=== PATIENT | female | born 1990 | race Two or more races ===

== ENCOUNTER 2020-05-22 19:10 | Emergency (ER) | payer MEDICAID ==
--- NOTE | 2020-05-22 20:07 | ER Document Report ---
ED Medical Screen (RME) - General Chief Complaint: Psych Problem Stated Complaint: PSYCH/NEEDS MEDS ADJUSTED Time Seen by Provider: 05/22/20 19:57 - HPI Notes: 05/22/20 20:05 30-year-old female with history of jackelin bipolar disorder presents to ED on recommendations for mobile crisis for evaluation of increased fluctuations of bipolar disorder. Patient reports has been manic for last week and started with episode of bipolar yesterday. Patient been crying and left a suicide note that she states was not to be taken in context. She reports she is not suicidal and has been in the past. Per mobile crisis and patient she has overdosed and used multiple medications in the past. She is from [place] and has been in [place] for 1 month. She has a history of cutting and has had multiple hospitalizations in [place]. Patient reports that she is out of one of the 4 medication she takes. She is also on oxcarbazepine and has not had a level checked in quite some time. She reports that she has been using cannabis and alcohol as well as cocaine and opiates in the past. Reports that she has not used alcohol in over 2 days and has not been using cocaine or opiates recently. Denies recent cannabis use. Patient reports that she does not have any cough or cold symptoms. She denies any current thoughts of harming herself or others. Reports that she believes that this is due to her cycling and the fact that her medications may not be appropriate. Reports that she was sent here for management as she has no one else to manage her care. - Related Data Allergies/Adverse Reactions: hydromorphone [From Dilaudid] Allergy (Verified 05/22/20 19:58) morphine Allergy (Verified 05/22/20 19:58) Penicillins Allergy (Verified 05/22/20 19:58) amoxicillan Allergy (Uncoded 05/22/20 19:58) Physical Exam - Vital signs Vitals: Temp Pulse Resp BP Pulse Ox 98.4 F 102 H 16 120/79 97 05/22/20 19:46 05/22/20 19:46 05/22/20 19:46 05/22/20 19:46 05/22/20 19:46 General: No acute distress. Alert and oriented x3. Sitting comfortably in a stretcher. Skin: No jaundice, pallor, petechiae, or rashes. Warm and dry. HEENT: Normocephalic, atraumatic. Pupils are equal round reactive to light and accommodation. Extraocular movements are intact. TMs without erythema or bulging. Canals are clear. Nares patent without any discharge. Teeth in good condition. Pharynx without erythema, edema, or exudates. Mucous membranes moist. No tonsillar enlargement. Uvula is midline. Airway is patent. Neck: Supple with no lymphadenopathy. Full range of motion. Heart: Regular rate and rhythm. S1,S2. No murmurs, rubs, or gallops. Lungs: Clear to auscultation bilaterally. No wheezes, rhonchi, rales. Equal chest expansion. No retractions. Abdomen: Soft, nontender to palpation, nondistended. Positive bowel sounds in all 4 quadrants. No masses. No CVA tenderness bilaterally. Back: No midline spinal TTP. No paraspinous muscular TTP. Neuro: GCS 15. Moving all extremities without discomfort. Psych: Mood and affect flat Course - Vital Signs Vital signs: Temp Pulse Resp BP Pulse Ox 98.4 F 102 H 16 120/79 97 05/22/20 19:46 05/22/20 19:46 05/22/20 19:46 05/22/20 19:46 05/22/20 19:46
[2020-05-22 20:57] LABS: ABSOLUTE EOSINOPHILS # (AUTO) 0.1 10^3/uL (0.0-0.6); ABSOLUTE LYMPHOCYTES (AUTO) 2.1 10^3/uL (0.5-4.7); ABSOLUTE MONOCYTES (AUTO) 0.6 10^3/uL (0.1-1.4); ABSOLUTE NEUT (AUTO) 8.5 10^3/uL (1.7-8.2); BASOPHILS % (AUTO) 0.3 % (0-2); EOSINOPHILS % (AUTO) 0.5 % (0-6); HEMATOCRIT 40.7 % (36.0-47.0); HEMOGLOBIN 13.7 g/dL (12.0-15.5); LYMPHOCYTES % (AUTO) 18.2 % (13-45); MEAN CORPUSCULAR HEMOGLOBIN 26.7 pg (27.0-33.4); MEAN CORPUSCULAR HGB CONC 33.7 g/dL (32.0-36.0); MEAN CORPUSCULAR VOLUME 79 fl (80-97); MONOCYTES % (AUTO) 5.7 % (3-13); PLATELET COUNT 338 10^3/uL (150-450); RED BLOOD COUNT 5.13 10^6/uL (3.72-5.28); RED CELL DISTRIBUTION WIDTH 13.6 % (11.5-14.0); SEGMENTED NEUTROPHILS % (AUTO) 75.3 % (42-78); TOTAL CELLS COUNTED % (AUTO) 100 %; WHITE BLOOD COUNT 11.3 10^3/uL (4.0-10.5)
[2020-05-22 20:58] LABS: APPEARANCE,URINE CLOUDY; BILIRUBIN,URINE NEGATIVE (NEGATIVE); COLOR,URINE YELLOW; GLUCOSE, URINE NEGATIVE (NEGATIVE); KETONES,URINE NEGATIVE (NEGATIVE); LEUKOCYTE ESTERASE,URINE LARGE (NEGATIVE); NITRITE,URINE NEGATIVE (NEGATIVE); PROTEIN,URINE NEGATIVE (NEGATIVE); URINE SPECIFIC GRAVITY 1.013; UROBILINOGEN,URINE NEGATIVE mg/dL (<2.0)
[2020-05-22 21:10] LABS: URINE AMPHETAMINES SCREEN NEGATIVE; URINE BARBITURATES SCREEN NEGATIVE; URINE BENZODIAZEPINES SCREEN NEGATIVE; URINE COCAINE SCREEN NEGATIVE; URINE MARIJUANA (THC) SCREEN NEGATIVE; URINE METHADONE SCREEN NEGATIVE; URINE PHENCYCLIDINE SCREEN NEGATIVE
[2020-05-22 21:13] LABS: ALBUMIN 4.6 g/dL (3.5-5.0); ALKALINE PHOSPHATASE 97 U/L (38-126); ANION GAP 9 (5-19); ASPARTATE AMINO TRANSFERASE 19 U/L (14-36); BILIRUBIN,DIRECT 0.1 mg/dL (0.0-0.4); BILIRUBIN,TOTAL 0.2 mg/dL (0.2-1.3); BLOOD UREA NITROGEN 17 mg/dL (7-20); CALCIUM 9.5 mg/dL (8.4-10.2); CARBON DIOXIDE 24 mmol/L (22-30); CHLORIDE 106 mmol/L (98-107); GLUCOSE 90 mg/dL (75-110); POTASSIUM 3.9 mmol/L (3.6-5.0); TOTAL PROTEIN 7.8 g/dL (6.3-8.2)
[2020-05-22 21:16] LABS: ACETAMINOPHEN < 10 ug/mL (10-30); ALCOHOL < 10 mg/dL (NONE DETECTED); SALICYLATE < 1.0 mg/dL (2.0-20.0)
[2020-05-22] MEDS ORDERED: MELATONIN 5 MG TABLET PO ONE (23:56)
--- NOTE | 2020-05-23 00:19 | ER Document Report ---
ED General - Related Data Home Medications: Oxcarbazepine 300mg. Hydroxyzine HCL 50mg. Mirtazapine 30mg. Aripiprazole 10mg <SHAUN BRADY IV - Last Filed: 05/23/20 05:45> <MARILIA JUAREZ - Last Filed: 05/23/20 16:37> <LOUISE MACDONALD - Last Filed: 05/23/20 18:03> - General Chief Complaint: Psych Problem Stated Complaint: PSYCH/NEEDS MEDS ADJUSTED Time Seen by Provider: 05/22/20 19:57 Primary Care Provider: [facility] [Outside] - Follow up in 3-5 days [facility] [Outside] - Follow up as needed - [facility] Context: Time:[00 01 hours] Chief Complaint: [Out of bipolar medications] [This is a 30-year-old female with a history of bipolar disorder who presents to the emergency department based on recommendation from mobile crisis for evaluation of increased fluctuation of her mood. Patient states she has felt like she has been in more of a manic state than usual and has been out of some of her bipolar medications. Patient denies suicidal ideation or homicidal ideation. Patient states that she does use cannabis and alcohol as well as cocaine and opiates. Patient states the last time she used alcohol was 2 days ago. ] History obtained from [patient] Symptoms began:[1 week ago] Onset: [Gradual] Timing: [Gradual] Quality: [Insomnia and elevated mood] Intensity: [Severe] Location: [Generalized] Radiation: [Denies] [The pain does not migrate to a new location.] Aggravating factors: [none] Relieving factors: [none] [Denies] SOB [Denies] nausea [Denies] vomiting [Denies] sweats [Denies] fever [Denies] cough [Denies] calf or leg swelling or pain (SHAUN BRADY IV) - Related Data Allergies/Adverse Reactions: hydromorphone [From Dilaudid] Allergy (Verified 05/22/20 19:58) morphine Allergy (Verified 05/22/20 19:58) Penicillins Allergy (Verified 05/22/20 19:58) amoxicillan Allergy (Uncoded 05/22/20 19:58) Past Medical History - General Information source: Patient - Social History Smoking Status: Current Every Day Smoker Chew tobacco use (# tins/day): No Frequency of alcohol use: Occasional Drug Abuse: None Family History: Reviewed & Not Pertinent <SHAUN BRADY IV - Last Filed: 05/23/20 05:45> Review of Systems <SHAUN BRADY IV - Last Filed: 05/23/20 05:45> - Review of Systems Notes: Review of systems as below unless otherwise stated in HPI. CONSTITUTIONAL [No] fever, [No] chills. EYES [No] eye pain. ENT [No] URI symptoms, [No] sore throat, [No] ear pain. CARDIOVASCULAR [No] chest pain, [No] palpitations, [No] edema. RESPIRATORY [No] Cough, [No] SOB, [No] wheezing. GASTROINTESTINAL [No] abdominal pain, [No] nausea, [No] Diarrhea, [No] Vomiting, [No] constipation, [No] melena, [No] rectal bleeding. GENITOURINARY [No] dysuria, [No] urinary frequency, [No] hematuria, [No] urinary urgency, [No] vaginal discharge, [No] vaginal bleeding. MUSCULOSKELETAL [No] Back pain. SKIN [No] Rash. NEUROLOGIC [No] Headache, [No] recent seizures, [No] paralysis,[No] parathesias. ENDOCRINE [No] polyuria. HEMO/LYMPATIC [No] easy brusing PSYCHIATRIC Positive jackelin, positive anxiety, positive lability of mood, positive insomnia, negative suicidal ideation, negative homicidal ideation (SHAUN BRADY IV) Physical Exam <SHAUN BRADY IV - Last Filed: 05/23/20 05:45> - Vital signs Vitals: Temp Pulse Resp BP Pulse Ox 98.4 F 102 H 16 120/79 97 05/22/20 19:46 05/22/20 19:46 05/22/20 19:46 05/22/20 19:46 05/22/20 19:46 - Notes Notes: CONSTITUTIONAL [Vital signs reviewed, Patient appears tearful, alert and oriented X 3, Normal stature.] HEAD [Atraumatic, Normocephalic.] EYES [Eyes are normal to inspection, No discharge from eyes, Extraocular muscles intact, Sclera are normal, Conjunctiva are normal.] ENT [External ears normal to inspection, Nose examination normal, Mouth normal to inspection.] NECK [Normal ROM, No jugular venous distention, No meningeal signs, ] RESPIRATORY CHEST [Chest is nontender, Breath sounds normal, No respiratory distress.] CARDIOVASCULAR [RRR, No murmurs, Normal S1 S2, No rub, No gallop.] ABDOMEN [Abdomen is nontender, No pulsatile masses, No other masses, Bowel sounds normal, No distension, No peritoneal signs, No hernias.] BACK [There is no CVA Tenderness, There is no tenderness to palpation, Normal inspection.] UPPER EXTREMITY [Inspection normal, No cyanosis, No clubbing, No edema, LOWER EXTREMITY [Inspection normal, No cyanosis, No clubbing, No edema, No calf tenderness, NEURO [No focal motor deficits, No focal sensory deficits, Speech normal.] SKIN [Skin is warm, Skin is dry, Skin is normal color.] LYMPHATIC [No adenopathy in neck.] PSYCHIATRIC [Patient is tearful. Speech is rational, not rapid. Patient makes good eye contact. Patient denies suicidal ideation or homicidal ideation.. ] (SHAUN BRADY IV) Course - Laboratory Results Result Diagrams: 05/22/20 20:25 05/22/20 20:25 Critical Laboratory Results Reviewed: Yes Attending or Supervising Physician who Reviewed Labs: SHAUN BRADY IV - Abnormal urinalysis - Radiology Results Critical Radiology Results Reviewed: No Critical Results Attending or Supervising Physician who Reviewed Radiology: SHAUN BRADY IV <SHAUN BRADY IV - Last Filed: 05/23/20 05:45> - Laboratory Results Result Diagrams: 05/22/20 20:25 05/22/20 20:25 <MARILIA JUAREZ - Last Filed: 05/23/20 16:37> - Laboratory Results Result Diagrams: 05/22/20 20:25 05/22/20 20:25 <LOUISE MACDONALD - Last Filed: 05/23/20 18:03> - Vital Signs Vital signs: Temp Pulse Resp BP Pulse Ox 98.1 F 91 16 102/68 99 05/23/20 08:53 05/23/20 08:53 05/23/20 08:53 05/23/20 08:53 05/23/20 08:53 - Laboratory Results Laboratory Results Interpreted: 12/05/3005/22/20 05/22/20 20:25 20:25 20:30 WBC 11.3 H MCV 79 L MCH 26.7 L Absolute Neuts (auto) 8.5 H Urine Blood MODERATE H Ur Leukocyte Esterase LARGE H Salicylates < 1.0 L Acetaminophen < 10 L - EKG Interpretation by Me Additional EKG results interpreted by me: 05/23/20 00:27 EKG obtained on 05/22/2020 at 2033 hrs. was interpreted by this MD. Findings: Normal sinus rhythm, heart rate 92, normal axis, SC interval appears to be within normal limits, P waves preceding QRS complexes, QRS complexes appear narrow, QTC is 476, there are no obvious patterns of ST segment elevation, depression or reciprocal changes seen to suggest acute myocardial ischemia or infarction. There is no prior EKG available for comparison. Impression: Normal sinus rhythm with nonspecific ST segments. (SHAUN BRADY IV) Discharge <SHAUN BRADY IV - Last Filed: 05/23/20 05:45> <MARILIA JUAREZ - Last Filed: 05/23/20 16:37> <LOUISE MACDONALD - Last Filed: 05/23/20 18:03> - Discharge Clinical Impression: Yeast UTI Bipolar disorder Qualifiers: Active/Remission status: remission status unspecified Qualified Code(s): F31.9 - Bipolar disorder, unspecified UTI (urinary tract infection) Qualifiers: Urinary tract infection type: site unspecified Hematuria presence: with hematuria Qualified Code(s): N39.0 - Urinary tract infection, site not specified Condition: Stable Disposition: HOME, SELF-CARE Instructions: Urinary Tract Infection ([facility]) Additional Instructions: Your urine shows findings consistent with a urinary tract infection. Please take all the antibiotics as directed even if your symptoms have improved. Please follow-up with your primary care physician as needed. Return to emergency room if you develop fever >101F, persistent vomiting, become lethargic, have severe pain in your sides, or any other symptoms that are concerning to you. You have been evaluated both medical and behavioral teams have been deemed appropriate for discharge. You have been provided prescriptions for your home medications that you have run out on as the following: Abilify 10 mg daily Trileptal 300 MG twice daily Remeron 30 mg daily You have been vital local resource list of area providers including mobile crisis contact information. Please make an appointment with your chosen provider in the next 3 to 5 days for follow-up outpatient mental health services. AT ANY TIME, IF YOUR SYMPTOMS CHANGE SIGNIFICANTLY OR WORSEN OR YOU DEVELOP NEW SYMPTOMS, RETURN TO THE EMERGENCY DEPARTMENT IMMEDIATELY FOR RE-EVALUATION. Prescriptions: Aripiprazole 10 mg PO DAILY #14 tablet Sulfamethoxazole/Trimethoprim [Bactrim Ds Tablet] 1 each PO BID #14 tablet Fluconazole [Diflucan 100 mg Tablet] 100 mg PO ASDIR PRN #1 tablet PRN Reason: Mirtazapine 30 mg PO DAILY #14 tablet Oxcarbazepine 300 mg PO BID #28 tablet Referrals: [facility] [Outside] - Follow up as needed [facility] [Outside] - Follow up in 3-5 days
[2020-05-23] MEDS ORDERED: FLUCONAZOLE 100 MG TABLET PO ONE (09:44)
[2020-05-23] MEDS ORDERED: SULFAMETHOXAZOLE/TRIMETHOPRIM 800-160 MG TABLET PO ONE (09:44)
--- NOTE | 2020-05-23 09:45 | ER Document Report ---
Doctor's Note Notes: 05/23/20 09:45 PHYSICAL EXAMINATION: GENERAL: Appears well, healthy, well-nourished, no acute distress. LUNGS: Equal breath sounds bilaterally and clear to auscultation. No wheezes rales or rhonchi. CARDIOVASCULAR: S1-S2, regular rate, regular rhythm. Radial pulses 2+, normal. ABDOMEN: Normoactive bowel sounds. Soft, nontender, no guarding, no rebound tenderness, and no masses palpated. PSYCH: Normal mood, normal affect. Patient denies any suicidal or homicidal ideation at this time. Denies any auditory or visual hallucinations. Patient has a large amount of leukocytes and moderate amount of blood in her urine. She also has yeast budding. Ordered her some Diflucan and Bactrim. We will also send her urine for culture. 05/23/20 18:00 Pharmacy has reconciled medications and patient is currently on Abilify 10 mg daily, Trileptal 100 mg twice daily, and Remeron 30 mg daily. We will refill these medications for 2 weeks. Patient has follow-up with mental health. We will also put the patient on Bactrim and fluconazole for treatment of her urinary tract infection with a yeast urinary tract infection. Patient is in agreement with this plan. Follow-up precautions were given. Verbal discharge instructions were given to the patient. They verbalized understanding. They are stable for discharge.
--- NOTE | 2020-05-23 13:44 | PSYCHOLOGICAL NOTE ---
Psych Note - Psych Note Date seen by psych provider: 05/23/20 Time seen by psych provider: 10:50 Psych Note: Reason for Consult: Out of psychiatric medications Patient presented to [facility] ED via POV for concerns of being out of her psychiatric medications. Patient was initially very tearful upon arrival and reports concerns that her medications were not working and has run out of one of them. Patient discloses today that her medication was working and thought they had stopped but thinks that it is possible her urinary tract infection and yeast infection could have triggered her recent bout of jackelin. She discloses that she just arrived to [place] from [place] a month ago and has not been able to secure outpatient mental health services. She reports that she is out of her medication that she "thinks starts with an A." She continue to report that she still has one of her other ones because she was only taking it twice a day instead of 3 times a day as directed; she cannot remember the exact name. Patient discloses that she was upset last night and crying because she did not want to have to go inpatient. She reports she has been inpatient psychiatric treatment before with the last time being approximately 8 months ago. She states, "in [place] if I went into a hospital because of running out of meds I would end up stuck there for at least 3 days.... I do not want to hurt anybody or myself I just feel ... I ran out of my medication...I can't put into words what it feels like..." Patient is alert and orientated to person, place, time and circumstance. Mood is currently anxious with congruent affect as noted by psycho motor agitation (she is noted to be rocking back and forth) that she reports is keeping her calm and comforts her. Patient denies suicidal and homicidal ideation. Delusions are absent and behaviors congruent with an intact reality based presentation i.e. organized and linear thought process. Eye contact was well maintained. Conversational speech is within normal rate, tone and prosody. Intellectual abilities appear to be within the average range. Attention and concentration is fair. Insight, judgment, impulse control is fair. Medication recommendations are recommended; however, at this time the patient's home medication have not been reconciled Impression\\plan: Patient is will be cleared from acute psychiatric services once medications are able to be provided to assist with her current withdrawal symptoms. At this time patient's medications have not been reconciled. Patient does not meet IVC criteria per [place] GS 120 2C as she denies any thoughts of wanting to harm herself or others. Patient is not demonstrating behaviors of responding to internal stimuli. There is notable psychomotor agitation and connection to the patient attempting to self soothe. Dr. Silva was consulted to care management of this patient; attending physicians in agreement with recommendations and disposition.
[2020-05-23] MEDS ORDERED: ARIPIPRAZOLE 5 MG TABLET PO ONE (16:31)
[2020-05-23] MEDS ORDERED: MIRTAZAPINE 15 MG TABLET PO ONE (16:32)
[2020-05-23] MEDS ORDERED: OXCARBAZEPINE 150 MG TABLET PO ONE (16:32)
[2020-05-23 18:22] VITALS: BP 116/67
--- NOTE | 2020-05-24 00:23 | EKG REPORT ---
SEVERITY:- NORMAL ECG - SINUS RHYTHM : Confirmed by: Bernadette Meade 24-May-2020 00:22:22
== END 2020-05-23 18:22 | disposition home or self-care (01) ==
LOC: ER 19:10
DX: B37.49 Other urogenital candidiasis (principal); F31.9 Bipolar disorder, unspecified; F12.10 Cannabis abuse, uncomplicated; F10.10 Alcohol abuse, uncomplicated; F14.10 Cocaine abuse, uncomplicated; F19.10 Other psychoactive substance abuse, uncomplicated; Z88.8 Allergy status to other drugs, medicaments and biological substances; Z88.0 Allergy status to penicillin; F17.200 Nicotine dependence, unspecified, uncomplicated
CPT/HCPCS: 93005; 99285; 80183; 36415; 87086; 80307 ×4; 84703; 85025; 80053; 81001; 93010; J3490 ×5

== ENCOUNTER 2020-06-09 18:48 | Emergency (ER) | payer MEDICAID ==
[2020-06-09] MEDS ORDERED: NORMAL SALINE 1000 ML 1,000 ML IV ONE (19:39)
--- NOTE | 2020-06-09 19:40 | ER Document Report ---
ED Medical Screen (RME) - General Chief Complaint: Chest Congestion Stated Complaint: COUGH,CONGESTION,DIARRHEA Time Seen by Provider: 06/09/20 19:35 Notes: Patient presents complaining of cough congestion with chest pain for the past 4 days. Patient reports sore throat and diarrhea. Patient denies any fever. Patient reports recent long distance travel from [place] this past week. I have greeted and performed a rapid initial assessment of this patient. A comprehensive ED assessment and evaluation of the patient, analysis of test results and completion of the medical decision making process will be conducted by additional ED providers. - Related Data Allergies/Adverse Reactions: hydromorphone [From Dilaudid] Allergy (Verified 05/22/20 19:58) morphine Allergy (Verified 05/22/20 19:58) Penicillins Allergy (Verified 05/22/20 19:58) amoxicillan Allergy (Uncoded 05/22/20 19:58) Home Medications: aripiprazole daily. abilify. lamictal Past Medical History - Social History Chew tobacco use (# tins/day): No Frequency of alcohol use: None Psychiatric Medical History: Reports: Hx Bipolar Disorder, Hx Depression Physical Exam - Vital signs Vitals: Temp Pulse Resp BP Pulse Ox 98.4 F 100 20 118/79 98 06/09/20 19:03 06/09/20 19:03 06/09/20 19:03 06/09/20 19:03 06/09/20 19:03 - Respiratory Respiratory status: No respiratory distress Breath sounds: Nonproductive cough Course - Vital Signs Vital signs: Temp Pulse Resp BP Pulse Ox 98.4 F 100 20 118/79 98 06/09/20 19:03 06/09/20 19:03 06/09/20 19:03 06/09/20 19:03 06/09/20 19:03
[2020-06-09 20:24] LABS: ABSOLUTE BASOPHILS # (AUTO) 0.1 10^3/uL (0.0-0.2); ABSOLUTE EOSINOPHILS # (AUTO) 0.1 10^3/uL (0.0-0.6); ABSOLUTE LYMPHOCYTES (AUTO) 2.4 10^3/uL (0.5-4.7); ABSOLUTE MONOCYTES (AUTO) 0.6 10^3/uL (0.1-1.4); ABSOLUTE NEUT (AUTO) 6.2 10^3/uL (1.7-8.2); BASOPHILS % (AUTO) 1.3 % (0-2); EOSINOPHILS % (AUTO) 0.9 % (0-6); HEMATOCRIT 37.9 % (36.0-47.0); HEMOGLOBIN 13.2 g/dL (12.0-15.5); LYMPHOCYTES % (AUTO) 25.9 % (13-45); MEAN CORPUSCULAR HEMOGLOBIN 27.2 pg (27.0-33.4); MEAN CORPUSCULAR HGB CONC 34.7 g/dL (32.0-36.0); MEAN CORPUSCULAR VOLUME 78 fl (80-97); MONOCYTES % (AUTO) 5.9 % (3-13); PLATELET COUNT 304 10^3/uL (150-450); RED BLOOD COUNT 4.85 10^6/uL (3.72-5.28); RED CELL DISTRIBUTION WIDTH 13.9 % (11.5-14.0); TOTAL CELLS COUNTED % (AUTO) 100 %; WHITE BLOOD COUNT 9.3 10^3/uL (4.0-10.5)
--- NOTE | 2020-06-09 20:29 | RADIOLOGY REPORT (SQ) ---
EXAM DESCRIPTION: XR CHEST 1 VIEW COMPLETED DATE/TME: 06/09/2020 19:52 CLINICAL HISTORY: 30 years, Female, cp, cough COMPARISON: None. TECHNIQUE: Upright portable chest x-ray FINDINGS: Cardiomediastinal silhouette is not enlarged. Mild hyperinflation. No acute lung pleural bone abnormalities. Mildly distended stomach with fluid. IMPRESSION: No acute findings in chest.
[2020-06-09 20:42] LABS: ALBUMIN 4.3 g/dL (3.5-5.0); ALKALINE PHOSPHATASE 93 U/L (38-126); ANION GAP 10 (5-19); ASPARTATE AMINO TRANSFERASE 20 U/L (14-36); BILIRUBIN,DIRECT 0.2 mg/dL (0.0-0.4); BILIRUBIN,TOTAL 0.4 mg/dL (0.2-1.3); BLOOD UREA NITROGEN 19 mg/dL (7-20); CALCIUM 9.8 mg/dL (8.4-10.2); CARBON DIOXIDE 24 mmol/L (22-30); CHLORIDE 107 mmol/L (98-107); GLUCOSE 118 mg/dL (75-110); POTASSIUM 3.9 mmol/L (3.6-5.0); TOTAL PROTEIN 7.3 g/dL (6.3-8.2)
[2020-06-10 01:55] LABS: A TYPE INFLUENZA AG NEGATIVE (NEGATIVE); B INFLUENZA AG NEGATIVE (NEGATIVE)
--- NOTE | 2020-06-10 02:14 | ER Document Report ---
ED General - General Chief Complaint: Chest Congestion Stated Complaint: COUGH,CONGESTION,DIARRHEA Time Seen by Provider: 06/09/20 19:35 - HPI Notes: Patient is a 30-year-old female with a past medical history of bipolar disorder who presents with cough and congestion. She states that she returned from [place] on Sunday. She has been sick since then. Her boyfriend also has similar symptoms. She complains of headaches, congestion, sore throat, dry cough. She states she has had chest tightness with coughing. She has also been having diarrhea. No fevers. She has body aches. She wants to be tested for Covid. She also states that she ran out of her Abilify. She tried to call her PCP this morning but their office is closed for the rest of the week. She states she would like a refill just to last her until Sunday. - Related Data Allergies/Adverse Reactions: hydromorphone [From Dilaudid] Allergy (Verified 05/22/20 19:58) morphine Allergy (Verified 05/22/20 19:58) Penicillins Allergy (Verified 05/22/20 19:58) amoxicillan Allergy (Uncoded 05/22/20 19:58) Home Medications: aripiprazole daily. abilify. lamictal Past Medical History - General Information source: Patient - Social History Smoking Status: Current Every Day Smoker Chew tobacco use (# tins/day): No Frequency of alcohol use: None Family History: Reviewed & Not Pertinent Patient has homicidal ideation: No Psychiatric Medical History: Reports: Hx Bipolar Disorder, Hx Depression Review of Systems - Review of Systems Notes: CONSTITUTIONAL: No fever, fatigue or weight loss. SKIN: No rash. HENT: Positive for congestion and sore throat. EYES: No recent vision problems or eye pain. CARDIOVASCULAR: No chest pain or edema. RESPIRATORY: Positive for cough and chest tightness. GASTROINTESTINAL: No abdominal pain. Positive for diarrhea. No vomiting. GENITOURINARY: No dysuria. MUSCULOSKELETAL: No joint pain or swelling. NEUROLOGIC: No seizures. No focal weakness or sensory changes. Positive for headaches. HEMATOLOGIC: No unusual bruising or bleeding. PSYCHIATRIC: No depression or anxiety. Physical Exam - Vital signs Vitals: Temp Pulse Resp BP Pulse Ox 98.4 F 100 20 118/79 98 06/09/20 19:03 06/09/20 19:03 06/09/20 19:03 06/09/20 19:03 06/09/20 19:03 - General General appearance: Appears well In distress: None Notes: VITAL SIGNS: Within normal limits. GENERAL: No acute distress, non-toxic appearance. HEAD: Normal with no signs of head trauma. EYES: Conjunctiva normal, no discharge. EARS: Hearing grossly intact. NOSE: Normal. THROAT: Oropharynx is normal. No exudates. NECK: Normal range of motion, no tenderness, supple, no lymphadenopathy, No adenopathy, no JVD. CHEST: Clear breath sounds bilaterally. No wheezes, rales, or rhonchi. CARDIAC: Regular rate and rhythm. VASCULAR: No Edema. ABDOMEN: Normal and soft MUSCULOSKELETAL: Good range of motion of all major joints. Extremities without clubbing, cyanosis or edema. NEUROLOGICAL: Alert and oriented x 3. No focal sensory or strength deficits. Speech normal. Follows commands appropriately. PSYCHIATRIC: Normal Affect, judgement and mood. SKIN: Normal appearance with no rashes or lesions. Course - Re-evaluation Re-evalutation: 06/10/20 02:12 Patient appears well on exam. She is in no acute distress. Her oxygen saturation is normal. She did request to have her Abilify refilled for several days. As the clinics are closed for the 's holiday, I do believe this is reasonable. She brought the empty bottle with her. She has had a prescription from this facility before. I will give her a very short supply until Sunday until she can get in touch with her doctor. Patient was told to self isolate until she is called with a negative Covid result. She is very agreeable to this plan. She was given strict return precautions. - Vital Signs Vital signs: Temp Pulse Resp BP Pulse Ox 98.4 F 88 16 120/80 100 06/10/20 00:46 06/10/20 00:46 06/10/20 00:46 06/10/20 00:46 06/10/20 00:46 - Laboratory Results Result Diagrams: 06/09/20 20:05 06/09/20 20:05 Laboratory Results Interpreted: 06/09/20 06/09/20 20:05 20:05 MCV 78 L Glucose 118 H Critical Laboratory Results Reviewed: No Critical Results - Radiology Results Critical Radiology Results Reviewed: No Critical Results Discharge - Discharge Clinical Impression: Cough, Congestion of nasal sinus, Suspected COVID-19 virus infection, Medicatio n refill Condition: Stable Disposition: HOME, SELF-CARE Instructions: COVID-19 Guidance for Persons Under Investigation Additional Instructions: Please follow-up with your family doctor. Please return to the ER for any worsening symptoms. Prescriptions: Aripiprazole 10 mg PO DAILY #4 tablet
[2020-06-10 02:33] VITALS: BP 110/78
--- NOTE | 2020-06-10 11:53 | EKG REPORT ---
SEVERITY:- OTHERWISE NORMAL ECG - SINUS TACHYCARDIA : Confirmed by: Braulio Escobar MD 10-Jun-2020 11:52:48
== END 2020-06-10 02:33 | disposition home or self-care (01) ==
LOC: ER 18:48
DX: R05 Cough (principal); R09.89 Other specified symptoms and signs involving the circulatory and respiratory systems; R51.9 Headache, unspecified; J02.9 Acute pharyngitis, unspecified; R07.89 Other chest pain; R19.7 Diarrhea, unspecified; F17.200 Nicotine dependence, unspecified, uncomplicated; F31.9 Bipolar disorder, unspecified; Z76.0 Encounter for issue of repeat prescription; Z88.6 Allergy status to analgesic agent; Z88.5 Allergy status to narcotic agent; Z88.0 Allergy status to penicillin; Z79.899 Other long term (current) drug therapy; Z20.828 Contact with and (suspected) exposure to other viral communicable diseases
CPT/HCPCS: 93005; 99285; 36415; 87070; 87880; 85025; 87635; 80053; 84484; 87804; 71045; 93010; C9803

== ENCOUNTER 2020-06-23 00:57 | Emergency (ER) | payer MEDICAID ==
[2020-06-23] MEDS ORDERED: NORMAL SALINE 1000 ML 1,000 ML IV ONE (04:20)
[2020-06-23] MEDS ORDERED: KETOROLAC TROMETHAMINE INJ/PF 30 MG/1 ML SDV IV ONE (04:20)
[2020-06-23] MEDS ORDERED: ONDANSETRON HCL INJ/PF 4 MG/2 ML SDV IV ONE (04:21)
[2020-06-23] MEDS ORDERED: DEXAMETHASONE SOD PHOS INJ 10 MG/1 ML VIAL IV ONE (04:21)
[2020-06-23 05:16] LABS: ABSOLUTE EOSINOPHILS # (AUTO) 0.2 10^3/uL (0.0-0.6); ABSOLUTE LYMPHOCYTES (AUTO) 2.2 10^3/uL (0.5-4.7); ABSOLUTE MONOCYTES (AUTO) 0.8 10^3/uL (0.1-1.4); ABSOLUTE NEUT (AUTO) 12.2 10^3/uL (1.7-8.2); BASOPHILS % (AUTO) 0.2 % (0-2); HEMATOCRIT 38.9 % (36.0-47.0); LYMPHOCYTES % (AUTO) 14.6 % (13-45); MEAN CORPUSCULAR HEMOGLOBIN 26.3 pg (27.0-33.4); MEAN CORPUSCULAR HGB CONC 33.4 g/dL (32.0-36.0); MEAN CORPUSCULAR VOLUME 79 fl (80-97); PLATELET COUNT 318 10^3/uL (150-450); RED BLOOD COUNT 4.93 10^6/uL (3.72-5.28); RED CELL DISTRIBUTION WIDTH 14.4 % (11.5-14.0); SEGMENTED NEUTROPHILS % (AUTO) 79.2 % (42-78); TOTAL CELLS COUNTED % (AUTO) 100 %; WHITE BLOOD COUNT 15.3 10^3/uL (4.0-10.5)
[2020-06-23 05:29] LABS: ALBUMIN 4.4 g/dL (3.5-5.0); ALKALINE PHOSPHATASE 105 U/L (38-126); ANION GAP 7 (5-19); ASPARTATE AMINO TRANSFERASE 20 U/L (14-36); BILIRUBIN,DIRECT 0.1 mg/dL (0.0-0.4); BILIRUBIN,TOTAL 0.5 mg/dL (0.2-1.3); BLOOD UREA NITROGEN 13 mg/dL (7-20); CALCIUM 9.3 mg/dL (8.4-10.2); CARBON DIOXIDE 27 mmol/L (22-30); CHLORIDE 103 mmol/L (98-107); GLUCOSE 86 mg/dL (75-110); POTASSIUM 4.2 mmol/L (3.6-5.0); TOTAL PROTEIN 7.5 g/dL (6.3-8.2)
[2020-06-23 05:30] LABS: ACETAMINOPHEN < 10 ug/mL (10-30); SALICYLATE < 1.0 mg/dL (2.0-20.0)
[2020-06-23 05:44] LABS: INTERNATIONAL RATION (INR) 0.99; PROTHROMBIN TIME 13.3 SEC (11.4-15.4)
[2020-06-23 05:46] LABS: D-DIMER 0.74 ug/mL (0.00-0.50)
--- NOTE | 2020-06-23 05:46 | RADIOLOGY REPORT (SQ) ---
CHEST X-RAY 1 VIEW on 06/23/2020 at 4:56 AM CLINICAL INDICATION: Cough, fever COMPARISON: 06/09/2020 FINDINGS: The lungs are clear. There is slight elevation of the left hemidiaphragm. Cardiac, hilar and mediastinal contours are within normal limits. Pulmonary vascularity is within normal limits. No bony abnormality is noted. IMPRESSION: No active disease.
[2020-06-23 05:54] LABS: PARTIAL THROMBOPLASTIN TIME 31.1 SEC (23.5-35.8)
--- NOTE | 2020-06-23 06:28 | ER Document Report ---
ED General <MIKE AVILAALBERTO Hemphill - Last Filed: 06/23/20 09:21> - Related Data Home Medications: mucinix, <KONGSRIDHAR Neymar - Last Filed: 06/24/20 07:13> - General Chief Complaint: Flu Symptoms Stated Complaint: SHORTNESS OF BREATH/NAUSEA/VOMITING Notes: 30-year-old female smoker presents with approximately 2 days of fever, generalized body aches, one episode of nonbloody emesis, nonbloody cough productive of scant nonbloody sputum, shortness of breath, sore throat, and pain in upper left back that is worse with taking deep breaths. Patient denies any abdominal pain, diarrhea or vomiting, chest pain, immunocompromise history, asthma/COPD history, recent antibiotics/hospitalizations (SRIDHAR KONG) - Related Data Allergies/Adverse Reactions: hydromorphone [From Dilaudid] Allergy (Verified 05/22/20 19:58) morphine Allergy (Verified 05/22/20 19:58) Penicillins Allergy (Verified 05/22/20 19:58) amoxicillan Allergy (Uncoded 05/22/20 19:58) Past Medical History - General Information source: Patient - Social History Smoking Status: Current Every Day Smoker Family History: Reviewed & Not Pertinent Psychiatric Medical History: Reports: Hx Bipolar Disorder, Hx Depression <SRIDHAR KONG Neymar - Last Filed: 06/24/20 07:13> Review of Systems <DILANSRIDHAR Neymar - Last Filed: 06/24/20 07:13> - Review of Systems Notes: REVIEW OF SYSTEMS: CONSTITUTIONAL : Denies fever, chills, or sweats. EENT: +recent cold/sinus symptoms, denies throat pain CARDIOVASCULAR: Denies chest pain, AMELIA RESPIRATORY: + cough, + shortness of breath. GASTROINTESTINAL: Denies abdominal pain, +nausea/vomiting. GENITOURINARY: Denies difficulty urinating, painful urination. MUSCULOSKELETAL: Denies neck pain, +back pain. SKIN: Denies rash or skin lesions. HEMATOLOGIC : Denies easy bruising or bleeding. LYMPHATIC: Denies swollen, enlarged glands. NEUROLOGICAL: Denies headache, denies change in gait. PSYCHIATRIC: Denies anxiety or stress or depression. (SRIDHAR KONG) Physical Exam <SRIDHAR KONG - Last Filed: 06/24/20 07:13> - Vital signs Vitals: Temp Pulse Resp BP Pulse Ox 98.0 F 117 H 18 113/79 100 06/23/20 01:20 06/23/20 01:20 06/23/20 01:20 06/23/20 01:20 06/23/20 01:20 - Notes Notes: PHYSICAL EXAMINATION: GENERAL: Uncomfortable but nontoxic-appearing young adult female in no acute distress HEAD: Atraumatic, normocephalic. EYES: Pupils equal round and appropriate constriction, sclera anicteric, conjunctiva are normal. ENT: nares patent, moist mucous membranes. NECK: Normal range of motion, supple without lymphadenopathy LUNGS: Scattered rhonchi bilaterally, good air movement, no wheezing, normal respiratory rate and effort, speaking in full sentences HEART: Mild tachycardia, regular rhythm, no murmurs ABDOMEN: Soft, nontender, no guarding, no masses, no CVAT EXTREMITIES/BACK: Normal range of motion, no pitting or edema. No cyanosis. No midline spinal tenderness or deformity NEUROLOGICAL: Awake, alert, conversing appropriately, moves all extremities spontaneously. PSYCH: Normal mood, normal affect. SKIN: Warm, Dry, normal turgor, no rashes or lesions noted. (SRIDHAR KONG) Course - Laboratory Results Result Diagrams: 06/23/20 04:40 06/23/20 04:40 Critical Laboratory Results Reviewed: No Critical Results - Radiology Results Critical Radiology Results Reviewed: No Critical Results <HALEY AVILA - Last Filed: 06/23/20 09:21> - Laboratory Results Result Diagrams: 06/23/20 04:40 06/23/20 04:40 Critical Laboratory Results Reviewed: No Critical Results - Radiology Results Critical Radiology Results Reviewed: No Critical Results <SRIDHAR KONG - Last Filed: 06/24/20 07:13> - Re-evaluation Re-evalutation: 06/23/20 09:18 Patient rested comfortably throughout her stay. CT scan was negative for any abnormalities. Specifically there was no PE and there was no evidence of pneumonia. Patient's Covid test is pending. She will be discharged home with a note for work and instructions to self quarantine until her Covid test is come back negative and her symptoms have resolved. All this was explained to the patient and her questions were answered. She should follow-up with primary care or here as needed if not improving. (HALEY AVILA) 06/23/20 06:28 Patient with constellation of symptoms highly suggestive of COVID-19 infection versus influenza versus other viral syndrome. Rule out pneumonia, rule out PE given tachycardia and pleuritic upper back pain. Given patient's low pretest probability as she has no other risk factors for PE other than possible Covid infection, D-dimer appropriate to rule out PE in this patient. Patient mildly tachycardic which improved after fluids, likely secondary to insensible losses, only had one episode of vomiting and has been tolerating p.o. since then. D- dimer mildly elevated so ordered CTA and will sign out patient to Dr. Avila pending imaging. Will give 1 empiric dose of Lovenox while pending imaging. The patient was evaluated during the global COVID-19 pandemic and that diagnosis was suspected/considered upon their initial presentation. Their evaluation, treatment and testing was consistent with current guidelines for patients who present with complaints or symptoms that may be related to COVID-19. 06/23/20 07:08 Patient turned over to Dr. Avila pending CTA chest and reevaluation. (SRIDHAR KONG) - Vital Signs Vital signs: Temp Pulse Resp BP Pulse Ox 97.7 F 90 18 110/59 L 100 06/23/20 05:33 06/23/20 09:31 06/23/20 09:31 06/23/20 09:31 06/23/20 09:31 - Laboratory Results Laboratory Results Interpreted: 06/23/20 06/23/20 06/23/20 04:40 04:40 04:40 WBC 15.3 H MCV 79 L MCH 26.3 L RDW 14.4 H Absolute Neuts (auto) 12.2 H Seg Neutrophils % 79.2 H D-Dimer 0.74 H Sodium 136.7 L Salicylates < 1.0 L Acetaminophen < 10 L Discharge <HALEY AVILA - Last Filed: 06/23/20 09:21> <SRIDHAR KONG - Last Filed: 06/24/20 07:13> - Discharge Clinical Impression: Viral syndrome Condition: Good Disposition: HOME, SELF-CARE Instructions: COVID-19 Guidance for Persons Under Investigation, Viral Syndrome ([facility]) Additional Instructions: Rest at home until your symptoms have resolved completely and your Covid test is known to be negative. Tylenol, plenty of fluids, and ibuprofen can all help with the aches pains and fever. You have been given a note to stay home from work until your symptoms have resolved and your Covid test is negative. Please take that to your employer. Follow-up with primary care or return here if unimproved or if any other concerning symptoms develop. Forms: Return to Work
[2020-06-23] MEDS ORDERED: ENOXAPARIN SODIUM INJ 80 MG/0.8 ML DISP.SYRIN SUBCUT ONE (06:33)
--- NOTE | 2020-06-23 07:21 | RADIOLOGY REPORT (SQ) ---
CT angiogram chest with contrast on 06/23/2020 at 6:48 AM CLINICAL INDICATION: Shortness of breath, elevated d-dimer TECHNIQUE: Multiple axial images are obtained throughout the chest following the administration of IV contrast. Computer generated 3D reconstructions/MIPS were performed. This exam was performed according to our departmental dose-optimization program, which includes automated exposure control, adjustment of the mA and/or kV according to patient size and/or use of iterative reconstruction technique. Total DLP is 451.61 mGy*cm. COMPARISON: None FINDINGS: There is no thoracic aortic aneurysm or dissection. There is no pleural or pericardial effusion. There is expected irregular enhancement in the spleen. Visualized upper abdomen is unremarkable. There is no thoracic adenopathy. There are no filling defects within the pulmonary arteries to suggest a pulmonary embolus. The lungs are clear. No acute bony abnormality is noted. IMPRESSION: 1. No evidence of pulmonary embolus. 2. No acute abnormality.
[2020-06-23 09:32] VITALS: BP 110/59
== END 2020-06-23 09:32 | disposition home or self-care (01) ==
LOC: ER 00:57
DX: B34.9 Viral infection, unspecified (principal); R50.9 Fever, unspecified; R11.10 Vomiting, unspecified; R05 Cough; R06.02 Shortness of breath; R00.0 Tachycardia, unspecified; R09.89 Other specified symptoms and signs involving the circulatory and respiratory systems; J02.9 Acute pharyngitis, unspecified; R07.81 Pleurodynia; R11.2 Nausea with vomiting, unspecified; R79.89 Other specified abnormal findings of blood chemistry; F17.200 Nicotine dependence, unspecified, uncomplicated; Z88.6 Allergy status to analgesic agent; Z88.5 Allergy status to narcotic agent; Z88.0 Allergy status to penicillin; Z20.822 Contact with and (suspected) exposure to COVID-19
CPT/HCPCS: 99285; 96372; 96361; 96374; 96375; 36415; 80307 ×2; 84703; 85025; 85610; 85730; 87635; 80053; 85379; 71045; 71275; J1885; J2405; J7030; J1650; J1100; C9803

== ENCOUNTER 2020-07-03 16:34 | Emergency (ER) | payer MEDICAID ==
--- NOTE | 2020-07-03 16:56 | ER Document Report ---
ED Medical Screen (RME) - General Chief Complaint: Low Back Pain Stated Complaint: LOW BACK PAIN,DARK URINE Time Seen by Provider: 07/03/20 16:52 Notes: HPI: 30-year-old female presenting with multiple complaints. Patient states that she woke up today with right flank and back pain. She reports dark urine. Patient also reports vaginal bleeding without pain for 2 weeks. She also reports that she is started having diarrhea. She denies abdominal or pelvic pain. She denies fever. States she had a negative Covid test 10 days ago PHYSICAL EXAMINATION: Mild discomfort on palpation of the right lower back region. No discomfort on palpation of the abdomen although she is minimally tender in the suprapubic region. I have greeted and performed a rapid initial assessment of this patient. A comprehensive ED assessment and evaluation of the patient, analysis of test results and completion of medical decision making process will be conducted by an additional ED providers. Please note that clinical decision making for this patient was made during the 2019 pandemic of novel coronavirus which caused a significant strain on the healthcare system including at this particular facility. Criteria for admission discharge and level of care decisions as well as treatment decisions have necessarily changed - Related Data Allergies/Adverse Reactions: hydromorphone [From Dilaudid] Allergy (Verified 05/22/20 19:58) morphine Allergy (Verified 05/22/20 19:58) Penicillins Allergy (Verified 05/22/20 19:58) amoxicillan Allergy (Uncoded 05/22/20 19:58) Past Medical History - Social History Frequency of alcohol use: None Drug Abuse: None Psychiatric Medical History: Reports: Hx Bipolar Disorder, Hx Depression Physical Exam - Vital signs Vitals: Temp Pulse Resp BP Pulse Ox 98.8 F 108 H 20 119/78 100 07/03/20 16:38 07/03/20 16:38 07/03/20 16:38 07/03/20 16:38 07/03/20 16:38 Course - Vital Signs Vital signs: Temp Pulse Resp BP Pulse Ox 98.8 F 108 H 20 119/78 100 07/03/20 16:38 07/03/20 16:38 07/03/20 16:38 07/03/20 16:38 07/03/20 16:38
[2020-07-03 17:46] LABS: ABSOLUTE LYMPHOCYTES (AUTO) 1.8 10^3/uL (0.5-4.7); ABSOLUTE MONOCYTES (AUTO) 0.6 10^3/uL (0.1-1.4); ABSOLUTE NEUT (AUTO) 7.2 10^3/uL (1.7-8.2); BASOPHILS % (AUTO) 0.4 % (0-2); EOSINOPHILS % (AUTO) 0.4 % (0-6); HEMATOCRIT 41.2 % (36.0-47.0); HEMOGLOBIN 13.7 g/dL (12.0-15.5); LYMPHOCYTES % (AUTO) 18.7 % (13-45); MEAN CORPUSCULAR HEMOGLOBIN 26.4 pg (27.0-33.4); MEAN CORPUSCULAR HGB CONC 33.3 g/dL (32.0-36.0); MEAN CORPUSCULAR VOLUME 79 fl (80-97); PLATELET COUNT 359 10^3/uL (150-450); RED BLOOD COUNT 5.21 10^6/uL (3.72-5.28); RED CELL DISTRIBUTION WIDTH 14.7 % (11.5-14.0); SEGMENTED NEUTROPHILS % (AUTO) 74.5 % (42-78); TOTAL CELLS COUNTED % (AUTO) 100 %; WHITE BLOOD COUNT 9.7 10^3/uL (4.0-10.5)
[2020-07-03 17:48] LABS: APPEARANCE,URINE CLOUDY; BILIRUBIN,URINE NEGATIVE (NEGATIVE); COLOR,URINE YELLOW; GLUCOSE, URINE NEGATIVE (NEGATIVE); KETONES,URINE NEGATIVE (NEGATIVE); LEUKOCYTE ESTERASE,URINE LARGE (NEGATIVE); NITRITE,URINE NEGATIVE (NEGATIVE); PROTEIN,URINE 30 mg/dL (NEGATIVE); URINE SPECIFIC GRAVITY 1.017; UROBILINOGEN,URINE NEGATIVE mg/dL (<2.0)
[2020-07-03 18:03] LABS: ALBUMIN 4.4 g/dL (3.5-5.0); ALKALINE PHOSPHATASE 99 U/L (38-126); ANION GAP 8 (5-19); ASPARTATE AMINO TRANSFERASE 17 U/L (14-36); BILIRUBIN,DIRECT 0.2 mg/dL (0.0-0.4); BILIRUBIN,TOTAL 0.4 mg/dL (0.2-1.3); BLOOD UREA NITROGEN 14 mg/dL (7-20); CALCIUM 9.6 mg/dL (8.4-10.2); CARBON DIOXIDE 28 mmol/L (22-30); CHLORIDE 104 mmol/L (98-107); GLUCOSE 88 mg/dL (75-110); POTASSIUM 3.7 mmol/L (3.6-5.0); TOTAL PROTEIN 7.6 g/dL (6.3-8.2)
[2020-07-03] MEDS ORDERED: KETOROLAC TROMETHAMINE 60 MG/2 ML SDV IM ONE (18:31)
[2020-07-03 19:18] LABS: BACTERIA (WET MOUNT) 3+ BACTERIA SEEN; EPITHELIALS (WET MOUNT) 3+ EPITHELIALS SEEN; RBCS (WET MOUNT) NO RBCS SEEN; T.VAGINALIS (WET MOUNT) COULD NOT PERFORM; WBCS (WET MOUNT) 1+ WBCS SEEN; YEAST (WET MOUNT) NO YEAST SEEN
--- NOTE | 2020-07-03 19:22 | RADIOLOGY REPORT (SQ) ---
EXAM DESCRIPTION: CT ABD/PELVIS NO ORAL OR IV IMAGES COMPLETED DATE/TIME: 07/03/2020 7:05 pm REASON FOR STUDY: right flank pain, rule out stone COMPARISON: None. TECHNIQUE: CT scan of the abdomen and pelvis performed without intravenous or oral contrast. Images reviewed with lung, soft tissue, and bone windows. Reconstructed coronal and sagittal MPR images revi ewed. All images stored on PACS. All CT scanners at this facility use dose modulation, iterative reconstruction, and/or weight based d osing when appropriate to reduce radiation dose to as low as reasonably achievable (ALARA). [facility]: Dose Right [facility]: CareDose [facility]: Dose Right [facility]: Teradose 4D [facility]: Smart WorldWinger RADIATION DOSE: CT Rad equipment meets quality standard of care and radiation dose reduction techniq ues were employed. CTDIvol: 5.8 mGy. DLP: 297 mGy-cm.mGy. LIMITATIONS: None. FINDINGS: LOWER CHEST: No significant findings. No nodules or infiltrates. NON-CONTRASTED LIVER, SPLEEN, ADRENALS: Evaluation limited by lack of IV contrast. No identified sign ificant masses. PANCREAS: No masses. No peripancreatic inflammatory changes. GALLBLADDER: No identified stones by CT criteria. No inflammatory changes to suggest cholecystitis. RIGHT KIDNEY AND URETER: No suspicious masses. Assessment limited by lack of IV contrast. No signif icant calcifications. No hydronephrosis or hydroureter. LEFT KIDNEY AND URETER: No suspicious masses. Assessment limited by lack of IV contrast. No signifi cant calcifications. No hydronephrosis or hydroureter. AORTA AND RETROPERITONEUM: No aneurysm. No retroperitoneal masses or adenopathy. BOWEL AND PERITONEAL CAVITY: No obvious masses or inflammatory changes. No free fluid. APPENDIX: Normal. PELVIS, BLADDER, AND ABDOMINAL WALL:No abnormal masses. No free fluid. Bladder normal. BONES: No significant findings. OTHER: No other significant finding. IMPRESSION: NO SIGNIFICANT OR ACUTE PROCESS IN THE ABDOMEN OR PELVIS. COMMENT: Quality ID # [id number]: Final reports with documentation of one or more dose reduction techniques (e.g., Automated exposure control, adjustment of the mA and/or kV according to patient size, use of iterative reconstruction technique) TECHNICAL DOCUMENTATION: JOB ID: [id number] 2010 [employer]- All Rights Reserved Reading location - IP/workstation name: [email or web address]
[2020-07-03 19:47] LABS: BACTERIA (WET MOUNT) 4+ BACTERIA SEEN; EPITHELIALS (WET MOUNT) 4+ EPITHELIALS SEEN; RBCS (WET MOUNT) NO RBCS SEEN; T.VAGINALIS (WET MOUNT) NO TRICHOMONAS SEEN; WBCS (WET MOUNT) 2+ WBCS SEEN; YEAST (WET MOUNT) NO YEAST SEEN
[2020-07-03 20:40] LABS: CHLAM PCR NOT DETECTED (NOT DETECT)
--- NOTE | 2020-07-03 21:34 | RADIOLOGY REPORT (SQ) ---
EXAM DESCRIPTION: US PELVIS TRANSVAGINAL COMPLETED DATE/TME: 07/03/2020 20:35 CLINICAL HISTORY: 30 years, Female, pelvic pain, bleeding, discharge COMPARISON: None. TECHNIQUE: Endovaginal images of the pelvis were obtained. Grayscale imaging and Doppler imaging were performed. LIMITATIONS: None. FINDINGS: Uterus measures approximately 7 x 3.8 x 4.7 cm. No myometrial mass is seen. Endometrial stripe thickness is approximately 2 mm and there is a 2.5 cm subendometrial calcification within the lower uterus, nonspecific but likely benign. The ovaries appear within normal limits and measure approximately 3 x 2 x 1.4 cm on the right and 2.9 x 1.4 x 1.3 cm on the left. There is no adnexal mass or free pelvic fluid. There is no evidence of ovarian torsion on Doppler. IMPRESSION: Thin endometrium at 2 mm. Solitary small subendometrial calcification is noted, nonspecific but likely benign. There is no adnexal mass or evidence of ovarian torsion. copyright 2010 [employer]- All Rights Reserved
[2020-07-03] MEDS ORDERED: METRONIDAZOLE 500 MG TABLET PO ONE (21:54)
--- NOTE | 2020-07-03 22:04 | ER Document Report ---
ED General - General Chief Complaint: Low Back Pain Stated Complaint: LOW BACK PAIN,DARK URINE Time Seen by Provider: 07/03/20 16:52 - HPI Notes: Patient is a 30-year-old female who presents with right flank pain. Patient states pain has been there for about 1 week. It feels sharp. Today, the pain worsened. She also complains of vaginal discharge. She states that it is streaked with brown blood. She is not filling up pads with this. It is only on the toilet paper. She denies any dysuria. Patient has no chest pain or shortness of breath. No fevers. She reports that she is concerned for STDs. She was treated for chlamydia earlier this year. She denies any history of kidney stones. She does not remember any injuries that occurred to her back. He has not taken anything for the pain. Back pain is worse with movement. - Related Data Allergies/Adverse Reactions: hydromorphone [From Dilaudid] Allergy (Verified 07/03/20 18:49) morphine Allergy (Verified 07/03/20 18:49) Penicillins Allergy (Verified 07/03/20 18:49) amoxicillan Allergy (Uncoded 07/03/20 18:49) Past Medical History - General Information source: Patient - Social History Smoking Status: Current Every Day Smoker Frequency of alcohol use: None Drug Abuse: None Family History: Reviewed & Not Pertinent Psychiatric Medical History: Reports: Hx Bipolar Disorder, Hx Depression Past Surgical History: Reports: Hx Section Review of Systems - Review of Systems Notes: CONSTITUTIONAL: No fever, fatigue or weight loss. SKIN: No rash. HENT: No congestion, ear pain, or sore throat. CARDIOVASCULAR: No chest pain or edema. RESPIRATORY: No cough, shortness of breath, congestion, or wheezing. GASTROINTESTINAL: No abdominal pain, nausea, vomiting, bloody stools or diarrhea. GENITOURINARY: No dysuria. Positive for vaginal discharge and vaginal bleeding. MUSCULOSKELETAL: No joint pain or swelling. Positive for back pain. LYMPHATIC: No swollen glands. NEUROLOGIC: No seizures. No headache, focal weakness or sensory changes. HEMATOLOGIC: No unusual bruising or bleeding. PSYCHIATRIC: No depression or anxiety. Physical Exam - Vital signs Vitals: Temp Pulse Resp BP Pulse Ox 98.8 F 108 H 20 119/78 100 07/03/20 16:38 07/03/20 16:38 07/03/20 16:38 07/03/20 16:38 07/03/20 16:38 - General General appearance: Appears well In distress: None Notes: VITAL SIGNS: Within normal limits. GENERAL: No acute distress, non-toxic appearance. HEAD: Normal with no signs of head trauma. EYES: Conjunctiva normal, no discharge. EARS: Hearing grossly intact.. NECK: Normal range of motion, no tenderness, supple, no lymphadenopathy, No adenopathy, no JVD. CHEST: Clear breath sounds bilaterally. No wheezes, rales, or rhonchi. CARDIAC: Regular rate and rhythm. VASCULAR: No Edema. ABDOMEN: Normal and soft with no tenderness. GENITOURINARY: Pelvic exam performed with female clerical receptionist. Patient had slight dark red blood in the vaginal vault. There was also noted to be white d ischarge. No clots. MUSCULOSKELETAL: Good range of motion of all major joints. Extremities without clubbing, cyanosis or edema. Discomfort to palpation of right flank. No rashes. NEUROLOGICAL: Alert and oriented x 3. No focal sensory or strength deficits. Speech normal. Follows commands appropriately. PSYCHIATRIC: Normal Affect, judgement and mood. SKIN: Normal appearance with no rashes or lesions. Course - Re-evaluation Re-evalutation: 07/04/20 00:02 Patient had a normal CAT scan without kidney stones or other acute causes. Her vaginal ultrasound was also unremarkable. Patient states she feels better after Toradol. I am concerned that she has bacterial vaginosis based on her swab and her exam. She will be treated with Flagyl. I told her not to drink alcohol as this can make her very sick when she takes Flagyl. Patient was negative for gonorrhea or chlamydia. She was told to follow-up with OB as she states she has abnormal periods. Patient is very agreeable to the plan. She was given strict return precautions. - Vital Signs Vital signs: Temp Pulse Resp BP Pulse Ox 98.5 F 108 H 16 109/73 97 07/03/20 22:26 07/03/20 16:38 07/03/20 22:26 07/03/20 22:26 07/03/20 22:26 - Laboratory Results Result Diagrams: 07/03/20 17:05 07/03/20 17:05 Laboratory Results Interpreted: 07/03/20 07/03/20 17:05 17:05 MCV 79 L MCH 26.4 L RDW 14.7 H Urine Protein 30 H Urine Blood MODERATE H Ur Leukocyte Esterase LARGE H Critical Laboratory Results Reviewed: No Critical Results - Radiology Results Critical Radiology Results Reviewed: No Critical Results Discharge - Discharge Clinical Impression: Right flank pain, Vaginal bleeding, Bacterial vaginosis Condition: Stable Disposition: HOME, SELF-CARE Instructions: Muscle Strain ([facility]), Vaginal Bleeding ([facility]), Vaginosis, Bacterial ([facility]) Additional Instructions: Your work-up today is reassuring. Please take your antibiotics as prescribed. You may use warm compresses on the back pain. You may also take naproxen. Please follow-up with PSYCHOLOGY FELLOW about the vaginal bleeding. Please return to the ER immediately for any worsening symptoms. Prescriptions: Metronidazole [Flagyl 500 mg Tablet] 500 mg PO BID 7 Days #14 tablet Naproxen [Naprosyn 250 mg Tablet] 250 mg PO BID #10 tablet Ondansetron [Zofran Odt 4 mg Tablet] 4 mg PO Q6H PRN 7 Days #10 tab.rapdis PRN Reason: Forms: Parent Work Note
[2020-07-03 22:27] VITALS: BP 109/73
--- OUTSIDE RECORDS SUMMARY | 2020-07-06 10:37 | XMS REPORT ---
:1990 [facility] Address [address] [address] Care Team Providers Name Role Phone Unavailable Unavailable Unavailable Allergies, Adverse Reactions, Alerts This patient has no known allergies or adverse reactions. Medications This patient has no known medications. Problems This patient has no known problems. Procedures This patient has no known procedures. Results Test Description Test Time Test Comments Text Results Atomic Results Result Comments SARS-CoV-2 RNA Resp Ql YAMILA+probe 2020-06-24 00:00:00 Test Item Value Reference Range Comments SARS-CoV-2 RNA Resp Ql YAMILA+probe Not detected [facility] Case ID: (test code = [id number]) [id number] SARS-CoV-2 RNA Resp Ql [id number] 00:00:00 Test Item Value Reference Range Comments SARS-CoV-2 RNA Resp Ql Not detected [facility] Case YAMILA+probe (test code = ID: COVID [id number]) Social History This patient has no known social history. Vital Signs This patient has no known vital signs.
== END 2020-07-03 22:30 | disposition home or self-care (01) ==
LOC: ER 16:34
DX: N76.0 Acute vaginitis (principal); B96.89 Other specified bacterial agents as the cause of diseases classified elsewhere; N93.9 Abnormal uterine and vaginal bleeding, unspecified; R10.9 Unspecified abdominal pain; F17.200 Nicotine dependence, unspecified, uncomplicated; Z88.6 Allergy status to analgesic agent; Z88.5 Allergy status to narcotic agent; Z88.0 Allergy status to penicillin
CPT/HCPCS: 99285; 96372; 36415; 87086; 87210; 85025; 81025; 87088; 80053; 81001; 87491; 87591; 76830; 93976; 74176; J1885; J3490

== ENCOUNTER 2020-07-06 00:57 | Emergency (ER) | payer MEDICAID ==
[2020-07-06 01:53] LABS: ABSOLUTE LYMPHOCYTES (AUTO) 1.9 10^3/uL (0.5-4.7); ABSOLUTE MONOCYTES (AUTO) 0.5 10^3/uL (0.1-1.4); BASOPHILS % (AUTO) 0.5 % (0-2); EOSINOPHILS % (AUTO) 0.4 % (0-6); HEMOGLOBIN 13.1 g/dL (12.0-15.5); LYMPHOCYTES % (AUTO) 17.9 % (13-45); MEAN CORPUSCULAR HEMOGLOBIN 26.8 pg (27.0-33.4); MEAN CORPUSCULAR HGB CONC 33.7 g/dL (32.0-36.0); MEAN CORPUSCULAR VOLUME 80 fl (80-97); MONOCYTES % (AUTO) 4.5 % (3-13); PLATELET COUNT 334 10^3/uL (150-450); RED BLOOD COUNT 4.89 10^6/uL (3.72-5.28); RED CELL DISTRIBUTION WIDTH 14.9 % (11.5-14.0); SEGMENTED NEUTROPHILS % (AUTO) 76.7 % (42-78); TOTAL CELLS COUNTED % (AUTO) 100 %; WHITE BLOOD COUNT 10.4 10^3/uL (4.0-10.5)
--- NOTE | 2020-07-06 01:56 | ER Document Report ---
ED Psych Disorder / Suicide <TYSON TREVINO - Last Filed: 07/06/20 06:11> <LANCE DUARTE - Last Filed: 07/06/20 12:31> <AMBER LOPEZ - Last Filed: 07/06/20 12:46> - General Chief Complaint: Suicidal Ideation Stated Complaint: SUICIDE IDEATION Time Seen by Provider: 07/06/20 01:34 Primary Care Provider: [facility] [Outside] - Follow up as needed [facility] [Outside] - Follow up as needed [facility] [Outside] - Follow up as needed RAYMON STUBBS NP [Primary Care Provider] - Follow up as needed - HPI Notes: Patient is a 30-year-old female with a past medical history of bipolar and depression who presents with suicide attempt. Patient states her and her boyfriend are breaking up the past week. She has also been having trouble at work. Patient states that today she took 21 pills of 3 mg Lunesta in an attempt to "just end it." She called the crisis center today who called the ambulance. She also states she drank about a cup of vodka prior to coming to the ambulance. Patient has also been cutting. She has superficial cuts to her left inner forearm and her right thigh. She states she did that last week. She feels lightheaded. She also has blurry vision after taking the Lunesta. She denies any chest pain or shortness of breath. No abdominal pain or diarrhea. She states she has been admitted to a psychiatric facility before in [place]. (TYSON TREVINO) - Related Data Allergies/Adverse Reactions: hydromorphone [From Dilaudid] Allergy (Verified 07/03/20 18:49) morphine Allergy (Verified 07/03/20 18:49) Penicillins Allergy (Verified 07/03/20 18:49) amoxicillan Allergy (Uncoded 07/03/20 18:49) Past Medical History - General Information source: Patient - Social History Family History: Reviewed & Not Pertinent Psychiatric Medical History: Reports: Hx Bipolar Disorder, Hx Depression Past Surgical History: Reports: Hx Section <TYSON TREVINO - Last Filed: 07/06/20 06:11> - Social History Smoking Status: Unknown if Ever Smoked <AMBER LOPEZ - Last Filed: 07/06/20 12:46> Review of Systems <TYSON TREVINO - Last Filed: 07/06/20 06:11> - Review of Systems Notes: CONSTITUTIONAL: No fever, fatigue or weight loss. SKIN: No rash. HENT: No congestion, ear pain, or sore throat. EYES: Positive for blurry vision. CARDIOVASCULAR: No chest pain or edema. RESPIRATORY: No cough, shortness of breath, congestion, or wheezing. GASTROINTESTINAL: No abdominal pain, nausea, vomiting, bloody stools or diarr hea. MUSCULOSKELETAL: No joint pain or swelling. LYMPHATIC: No swollen glands. NEUROLOGIC: No seizures. No headache, focal weakness or sensory changes. Positive for lightheadedness. HEMATOLOGIC: No unusual bruising or bleeding. PSYCHIATRIC: No depression or anxiety. (TYSON TREVINO) Physical Exam - General General appearance: Appears well In distress: None <TYSON TREVINO - Last Filed: 07/06/20 06:11> - Vital signs Vitals: Temp Pulse Resp BP Pulse Ox 98.5 F 99 18 111/70 98 07/06/20 01:11 07/06/20 01:11 07/06/20 01:11 07/06/20 01:11 07/06/20 01:11 - General Notes: VITAL SIGNS: Within normal limits. GENERAL: No acute distress, non-toxic appearance. HEAD: Normal with no signs of head trauma. EYES: Conjunctiva normal, no discharge. EARS: Hearing grossly intact. NOSE: Normal. NECK: Normal range of motion, no tenderness, supple, no lymphadenopathy, No adenopathy, no JVD. CHEST: Clear breath sounds bilaterally. CARDIAC: Regular rate and rhythm. VASCULAR: No Edema. ABDOMEN: Normal and soft with no tenderness. MUSCULOSKELETAL: Good range of motion of all major joints. Extremities without clubbing, cyanosis or edema. NEUROLOGICAL: Alert and oriented x 3. No focal sensory or strength deficits. Speech normal. Follows commands appropriately. SKIN: Superficial cuts to her left inner forearm and to her right thigh. No infection noted. No bleeding. No laceration requiring sutures. (TYSON YEUNG) Course - Laboratory Results Result Diagrams: 07/06/20 01:34 07/06/20 01:34 - EKG Interpretation by [place] EKG shows normal: Sinus rhythm Rate: Normal Rhythm: NSR When compared to previous EKG there are: Previous EKG unavailable <TYSON TREVINO - Last Filed: 07/06/20 06:11> - Laboratory Results Result Diagrams: 07/06/20 01:34 07/06/20 01:34 <GERALDLANCE - Last Filed: 07/06/20 12:31> - Laboratory Results Result Diagrams: 07/06/20 01:34 07/06/20 01:34 Critical Laboratory Results Reviewed: No Critical Results - Radiology Results Critical Radiology Results Reviewed: No Critical Results <AMBER LOPEZ - Last Filed: 07/06/20 12:46> - Re-evaluation Re-evalutation: 07/06/20 02:00 Patient attempted to take Lunesta today to commit suicide. I will place her on IVC papers. Poison control recommended obtaining a Depakote and lithium level. She will need to be evaluated by psych. Patient will have her superficial wounds dressed. Psych consult was placed. She will be signed out to oncoming colleague at the end of my shift for further disposition and care. Patient is medically cleared. 07/06/20 05:31 07/06/20 06:11 (TYSON TREVINO) 07/06/20 12:45 Patient has been evaluated by the psychiatric team who feel she is not suicidal. They feel her story does not align as she had already taken a week of her Lunesta before stating she had overdosed yesterday but did not have enough pills to take what she said she did and also spent the night texting with her boyfriend instead of sleeping. Patient is alert and oriented right now she denies thoughts of hurting herself at this time. Patient is eating in no distress. She is excited that she is going to be able to go home. Outpatient follow-up has been arranged through the psychiatric team (AMBER LOPEZ) - Vital Signs Vital signs: Temp Pulse Resp BP Pulse Ox 98.4 F 88 18 114/74 98 07/06/20 06:00 07/06/20 06:00 07/06/20 06:00 07/06/20 06:00 07/06/20 06:00 - Laboratory Results Laboratory Results Interpreted: 07/06/20 07/06/20 07/06/20 01:34 01:34 01:34 MCH 26.8 L RDW 14.9 H Chloride 108 H Salicylates < 1.0 L Acetaminophen < 10 L Valproic Acid < 10.0 L [place] < 0.2 L - EKG Interpretation by Me Additional EKG results interpreted by me: 07/06/20 02:05 NS rhythm at a rate of 98. QTc 465. No acute ST changes. No previous EKG available for comparison. (TYSON TREVINO) Discharge <TYSON TREVINO - Last Filed: 07/06/20 06:11> <LANCE DUARTE - Last Filed: 07/06/20 12:31> <AMBER LOPEZ - Last Filed: 07/06/20 12:46> - Discharge Clinical Impression: Suicidal ideation Overdose Qualifiers: Encounter type: initial encounter Injury intent: intentional self-harm Qualified Code(s): T50.902A - Poisoning by unspecified drugs, medicaments and biological substances, intentional self-harm, initial encounter Condition: Stable Disposition: HOME, SELF-CARE Additional Instructions: You have been evaluated by both medical and behavioral health teams for depression. You have been deemed appropriate for discharge. While in the emergency department you received the following services/or had access to: Medical screening and assessment, nursing services, dietary services, pharmacological services, one-on-one counseling and/or psychotherapy, environmental services, and continuous observation by a patient safety compani on. You should continue your home medications as prescribed and follow up with your medication provider. Suicidal Ideation Suicidal ideation is a common medical term for thoughts about suicide, which may be as detailed as a formulated plan, without the suicidal act itself. Although most people who undergo suicidal ideation do not commit suicide, some go on to make suicide attempts. The range of suicidal ideation varies greatly from fleeting to detailed planning, role playing, and unsuccessful attempts. While thoughts about suicide are common, most people do not carry out se rious actions to commit suicide. However, based upon your evaluation and discussion with you, we believe you are not currently at risk to act upon your thoughts of suicide. Therefore, you will be discharged home. Altered Mental Status An altered mental status is a change in the normal functioning of the brain. This alteration of function can range from minor decreased brain function with s ome forgetfulness and confusion to complete loss of consciousness and coma. There are many possible causes of an altered mental status and include brain injuries such as trauma or strokes, problems with oxygen supply to the brain, fever and infections of the brain and/or elsewhere in the body, metabolic abnormalities such as low or high blood sugar, overdoses or excessive medication ingestion, and mental and psychiatric illnesses. Sometimes the altered mental status resolves and a definite cause is not determined. If a cause for your altered mental status was found, it has likely been corre cted. Your evaluation has not shown any condition that requires that you be admitted to the hospital. It is believed that you are safe to leave and return to your home. If you have a return of your symptoms, you should return for re- evaluation. Follow up care: You are currently involved in outpatient services with [facility], and are highly recommended to continue outpatient services. You are recommended to request outpatient therapy as well. You will benefit from therapy in learning how to id entify your triggers and learning healthy coping skills. You have been given a community outpatient referral list to include phone numbers for [facility] and [facility] mobile crisis. Your boyfriend agrees to be part of your discharge plan of care and agrees to pick you up from the ED. If you experience worsening or a significant change in your symptoms, notify the physician immediately, utilize mobile crisis, or return to the Emergency Department at any time for re- evaluation. Dr. Silva was consulted to care management of this patient; attending physicians in agreement with recommendations and disposition. Referrals: RAYMON STUBBS [facility]TER [Primary Care Provider] - Follow up as needed [facility] [Outside] - Follow up as needed [facility] [Outside] - Follow up as needed [facility] [Outside] - Follow up as needed
[2020-07-06 02:00] LABS: ALBUMIN 4.3 g/dL (3.5-5.0); ALCOHOL 38 mg/dL (NONE DETECTED); ALKALINE PHOSPHATASE 87 U/L (38-126); ANION GAP 11 (5-19); ASPARTATE AMINO TRANSFERASE 18 U/L (14-36); BILIRUBIN,DIRECT 0.2 mg/dL (0.0-0.4); BILIRUBIN,TOTAL 0.3 mg/dL (0.2-1.3); BLOOD UREA NITROGEN 12 mg/dL (7-20); CALCIUM 9.5 mg/dL (8.4-10.2); CARBON DIOXIDE 22 mmol/L (22-30); CHLORIDE 108 mmol/L (98-107); GLUCOSE 99 mg/dL (75-110); POTASSIUM 3.6 mmol/L (3.6-5.0); TOTAL PROTEIN 7.3 g/dL (6.3-8.2)
[2020-07-06 02:01] LABS: ACETAMINOPHEN < 10 ug/mL (10-30); SALICYLATE < 1.0 mg/dL (2.0-20.0)
[2020-07-06 02:14] LABS: LITHIUM < 0.2 mEq/L (0.6-1.2)
--- NOTE | 2020-07-06 09:24 | EKG REPORT ---
SEVERITY:- NORMAL ECG - SINUS RHYTHM : Confirmed by: Braulio Escobar MD 06-Jul-2020 09:23:41
[2020-07-06 11:10] LABS: APPEARANCE,URINE CLEAR; BILIRUBIN,URINE NEGATIVE (NEGATIVE); COLOR,URINE YELLOW; GLUCOSE, URINE NEGATIVE (NEGATIVE); KETONES,URINE NEGATIVE (NEGATIVE); LEUKOCYTE ESTERASE,URINE NEGATIVE (NEGATIVE); NITRITE,URINE NEGATIVE (NEGATIVE); PROTEIN,URINE NEGATIVE (NEGATIVE); URINE SPECIFIC GRAVITY 1.014; UROBILINOGEN,URINE NEGATIVE mg/dL (<2.0)
[2020-07-06 11:40] LABS: URINE AMPHETAMINES SCREEN NEGATIVE; URINE BARBITURATES SCREEN NEGATIVE; URINE BENZODIAZEPINES SCREEN NEGATIVE; URINE COCAINE SCREEN NEGATIVE; URINE MARIJUANA (THC) SCREEN NEGATIVE; URINE METHADONE SCREEN NEGATIVE; URINE PHENCYCLIDINE SCREEN NEGATIVE
--- NOTE | 2020-07-06 12:39 | PSYCHOLOGICAL NOTE ---
Psych Note - Psych Note Date seen by psych provider: 07/06/20 Time seen by psych provider: 11:12 Psych Note: Collateral Information: At 1112 spoke to Katey from [facility]. She noted a claim made by [facility] ([facility]) on 06/14/2020. She stated there isn't much else so it looks as though this may be a new provider. She also noted [facility] involvement with patient.
[2020-07-06 12:52] VITALS: BP 111/69
--- NOTE | 2020-07-06 15:31 | PSYCHOLOGICAL NOTE ---
Psych Note - Psych Note Date seen by psych provider: 07/06/20 Time seen by psych provider: 10:58 Psych Note: Reason for Consult: overdose [id number] Consent Permissions: filiberto Collins, Patient is a 30 year old female who presented to the [facility] ED today via EMS. Patient denies current suicidal ideation, plan, and intent. She alleges overdosing on 21 Lunesta pills, but later changes this amount to less. Patient reports stressors related to a lot going on this week such as being bullied at work and a breakup with her boyfriend in which she lives with. Patient reports taking the pills around 1300 and then spent the next several hours arguing with her boyfriend via text. She reports drinking Vodka later in the day and calling mobile crisis in which EMS was contacted. Patient reports attempting suicide 39 times in the past via pills and cutting and has been inpatient a lot (however not since being to [place] in March 2020). She has no scars on her arm, however does have superficial cuts on her left arm in which she did not need stiches. Patient reports moving to [place] in March 2020 from [place], where the majority of her family resides. She states her and her boyfriend came here for work for him and states she currently works at [employer]. Patient reports going to [facility] (which is listed as [facility] on her history of medical records) and is prescribed Lunesta only. She reports getting a 2 week prescription of Lunesta and has been taking it for a week, until allegedly finishing the second weeks worth of pills yesterday. She did report the Lunesta has made her depression worse (unknown reality of a ppropriate use prior to yesterday) Patient states she plans to still stay with her boyfriend and reports they will be fine. When inquiring about worst case scenario and them breaking up, patient continues to insist they will be fine. Patient regrets taking the pills and continues to deny suicidal ideation, plan, and intent. Patient was woken up for assessment. She presented appropriately during evaluation with clinician, however displayed cluster B personality traits. Patient reports history of marked impulsivity (ie cutting and overdosing 39 times), fear of abandonment (ie alleges overdosing after arguing with boyfriend/ breaking up temporarily), and recurrent suicidal gestures and self- injurious behaviors (ie superficially cutting her arm, no requiring stitches). She initially noted taking 21 Lunesta pills, however after discussing further reported only getting 14 days worth of medication prescribed and had been taking for one week and that she only overdosed on the remaining few pills (approximately 7). Patient made a point during assessment to show clinician she had cut her arm and when asked if it required stitches, patient states she does not know as she did not look under the bandage. There are concerns for the reliability of patients history as she changed how much medication she overdosed on and due to her not being able to identify if a provider put stiches in her arm this morning (stitches were not required). Collateral: [id number] Called Dennis, patients boyfriend. He confirms they do live together. He agrees to be part of discharge plan of care. He was given information on following up with [facility], utilizing mobile crisis, and following up with [place] [facility] if wanting additional care. He reports he can come to the ED to pick patient up in the next 5-10 minutes. Patient was alert and oriented to self, person, place, time and situation. Mood was euthymic with congruent affect. She denies current suicidal and homicidal ideation, plan, and intent. Patient did not appear to be responding to internal stimuli as evidenced by fair eye contact and answering questions appropriately when addressed. Thought processes are linear and organized. Conversational speech was within normal limits for rate, tone and prosody. Intellectual abilities are estimated to be average. Insight and judgment are fair and impulse control was poor as evidenced by misusing her medication. Patient engages appropriately. She demonstrates future forward goal oriented thinking as she works tonight and is worried about missing work. Clinical Presentation: depression; misuse of medication; cluster B traits IVC Criteria per [place] GS 122C Dangerous to others Within the relevant past the individual No has inflicted or attempted to inflict or threatened to inflict serious bodily harm on another AND No that there is a reasonable probability that this conduct will be repeated. OR No has acted in such a way as to create a substantial risk of serious bodily harm to another AND No that there is a reasonable probability that this conduct will be repeated. OR No has engaged in extreme destruction of property AND NO that there is a reasonable probability that this conduct will be repeated. Previous episodes of dangerousness to others, when applicable, may be considered when determining reasonable probability of future dangerous conduct. Clear, cogent, and convincing evidence that an individual has committed a homicide in the relevant past is prima facie evidence of dangerousness to others. Dangerous to self Within the relevant past the individual has done any of the following: acted in such a way as to show ALL of the following: No The individual would be unable without care, supervision, and the continued assistance of others not otherwise available, to exercise self- control, judgment, and discretion in the conduct of the individual's daily responsibilities and social relations or to satisfy the individual's need for nourishment, personal or medical care, prison, or self-protection and safety. AND No There is a reasonable probability of the individual suffering serious physical debilitation within the near future unless adequate treatment is given. A showing of behavior that is grossly irrational, of actions that the individual is unable to control, of behavior that is grossly inappropriate to the situation, or of other evidence of severely impaired insight and judgment shall create a prima facie inference that the individual is unable to care for himself or herself. OR Yes has attempted suicide or threatened suicide Patient alleges overdosing on AND No that there is a reasonable probability of suicide unless adequate treatment is given Denies current SI, plan, and intent. Demonstrates future forward goal oriented thinking as she worries about missing work this evening. OR No has mutilated himself or herself or attempted to mutilate himself or herself AND No that there is a reasonable probability of serious self-mutilation unless adequate treatment is given. NOTE: Previous episodes of dangerousness to self, when applicable, may be considered when determining reasonable probability of physical debilitation, suicide, or self-mutilation. Impression\plan: Patient is cleared from psychiatric services. Patient is recommended to rescind IVC. She was admitted to the ED, alleging an overdose on her . Patient initially reported overdosing on 21 pills, however later reports she only had a 14 day prescription, took pills for one week, and then intentionally ingested the rest yesterday. Medically, there are no concerns due to the alleged overdose and based on patients reported symptoms, patient did not experience any side effects. She reports taking the pills around 1300 yesterday and spending the next several hours texting her boyfriend and arguing with him while he was away at work. Patient then reports starting to drink alcohol and called EMS in the evening. Today in the ED, patient denies SI, plan, and intent and states she is regretful of taking the pills. She reports planning to go back home with her boyfriend, although they allegedly broke up, and states they will be fine. Clinician did attempt to address the break up with patient and inquired about other options and patient was persistent about being with her boyfriend. Patient reports medication management in the community and is believed to be attending [facility]. At this time, her medications are not reconciled by the [facility] pharmacy to confirm. Patient reports Lunesta prescription only, however this cannot be confirmed. There is a history of her being prescribed Suboxone and Lorazepam, however patient states she does not kn ow what these medications are and that she does not know when she took them. Again, this cannot be confirmed due to medications not reconciled by pharmacy. Boyfriend, Dennis, agrees to be part of discharge plan of care. He was informed about resources for patient for outpatient and mobile crisis as well as [place] [facility]. He was also informed patient is recommended to follow up immediately with her provider at [facility], preferably today after discharge, in order to discuss medication changes with them. Dennis states he will be picking up patient from the ED and bringing her to their home. He agrees to assist with follow up care. Patient was given community resource sheet which contains information for [facility], in which she is established with, as well as mobile crisis and other providers in the community. She was also given information for [facility]. She was recommended to immediately go to [facility] after discharge (as she does not work till 2100 tonight) as a walk in and request to be seen for medication adjustments. She was recommended to utilize mobile crisis, call her provider, or return to the ED if necessary. Dr. Silva was consulted to care management of this patient; attending physicians in agreement with recommendations and disposition.
== END 2020-07-06 13:00 | disposition home or self-care (01) ==
LOC: ER 00:57
DX: T42.6X2A Poisoning by other antiepileptic and sedative-hypnotic drugs, intentional self-harm, initial encounter (principal); R42 Dizziness and giddiness; H53.8 Other visual disturbances; S71.111A Laceration without foreign body, right thigh, initial encounter; S51.812A Laceration without foreign body of left forearm, initial encounter; X78.9XXA Intentional self-harm by unspecified sharp object, initial encounter; F32.9 Major depressive disorder, single episode, unspecified; Z63.0 Problems in relationship with spouse or partner; Z88.6 Allergy status to analgesic agent; Z88.5 Allergy status to narcotic agent; Z88.0 Allergy status to penicillin
CPT/HCPCS: 36415; 80053; 80164; 80178; 80307; 81001; 84703; 85025; 93005; 93010; 99285